=== PATIENT | female | born 1995 | race Caucasian/White ===

== ENCOUNTER 2017-09-23 18:06 | Emergency (ER) | payer SELFPAY ==
[~2017-09-23 18:06] MED LIST: AMOX-559 PO; CITA-137 PO; LOR5/325 PO; NORG1TAB74 PO; ONDA4TAB PO
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
[2017-09-23 20:00] VITALS: BP 126/88
[2017-09-23] MEDS ORDERED: AMOX-559 PO (20:29)
[2017-09-23] MEDS ORDERED: AMOX/CLAV 875 MG TAB PO ONE (20:30)
== END 2017-09-23 20:49 | disposition home or self-care (01) ==
LOC: ER 18:21
DX: S31.41XA Laceration without foreign body of vagina and vulva, initial encounter (principal)
CPT/HCPCS: 99283